=== PATIENT | male | born 1980 | race Caucasian/White ===

== ENCOUNTER 2019-06-18 11:19 | Emergency (ER) | payer OTHER ==
[~2019-06-18] VITALS: Ht 188 cm; Wt 140.0 kg
--- NOTE | 2019-06-18 13:43 | NUR ---
ORTHOSTATIC VS REFUSED, MD AWARE.
[2019-06-18 14:10] VITALS: BP 167/92
== END 2019-06-18 14:16 | disposition home or self-care (01) ==
LOC: ER 11:21
DX: R60.0 Localized edema (principal); R03.0 Elevated blood-pressure reading, without diagnosis of hypertension; F12.90 Cannabis use, unspecified, uncomplicated
CPT/HCPCS: 93005; 99283